=== PATIENT | male | born 2000 | race Caucasian/White ===

== ENCOUNTER 2021-05-22 19:28 | Inpatient (IN) ==
--- NOTE | 2021-05-22 19:47 | Emergency Department Note ---
Impression & Plan Acute hypoxemic respiratory failure, Acute dehydration, Pneumonia due to 2019 novel coronavirus, Hypokalemia ED Provider Note NAME: SATISH STRATTON AGE: 21 SEX: M : 2000 ARRIVES VIA: Walk-In INFORMANT: Patient, ED PROVIDER(S): Vasile Gibbons MD Chief Complaint: Diarrhea, cough, Covid positive HPI: Patient does present with the above symptoms which is been ongoing since last week. They have gotten slightly progressively worse. The patient's mother and father both have Covid symptoms. Patient states that his cough has been nonproductive. Patient is non-smoker. Patient does complain of some abdominal soreness as the patient has had some nausea and diarrheal symptoms. Patient denies recent falls or trauma. The patient has had slightly decreased appetite. No recent travel. The patient's mother and father are known sick contacts. The patient is not vaccinated against Covid. The patient does have a known history of autism. Patient denies any prior history of heart or lung disease. The patient denies any lower extremity edema. The patient states he has had no blood with the diarrhea. ROS: See HPI for pertinent positives and negatives. A total of 10 systems were reviewed and otherwise negative. Past medical history: See below Surgical history: See below Social history: See below Physical Exam: GENERAL: Wearing a mask, nontoxic. EYE EXAM: Normal conjunctiva. PERRL, no anisocoria and EOM's grossly intact w/o pain. NECK: Supple, no nuchal rigidity, no adenopathy, non-tender. No signs of meningismus. LUNGS: Crackles present. Normal chest wall mechanics. HEART: Tachycardic and regular, no MRG. ABDOMEN: Abdomen soft, non-tender, normo-active bowel sounds, no masses, no rebound or guarding. BACK: No CVA TTP. SKIN: No rashes and no bruising. UPPER EXTREMITIES: Upper extremities are grossly normal. LOWER EXTREMITIES: Grossly normal, no edema. Negative Homans' sign bilaterally. NEURO EXAM: A&O x3, cranial nerves II-XII grossly intact, normal speech, moves all 4 extremities on command w/o issue. Differential diagnoses: Reactive airway disease, pneumonia, pneumothorax, COPD, CHF, infections, cardiac ischemia, pulmonary embolism, musculoskeletal, gastrointestinal, as well as other pathologies. Course: Patient was seen and evaluated the bedside. Full history physical exam was performed. EKG interpreted by me Sinus tachycardia, rate of 125, normal intervals, right axis deviation, T wave inversion in lead III Imaging Studies: See below Cardiac monitoring: An order was placed for continuous cardiac monitoring. The monitor shows a rate of 112 with sinus tachycardia rhythm. MDM: Patient was seen due to concern for diarrheal illness, positive Covid with nausea and cough. Patient did have blood work completed along with a chest x- ray. After the patient was initially evaluated the patient was noted to be hypoxic from 86 to 88% on room air was placed on 2 L nasal cannula by nursing. Patient's EKG shows sinus tachycardia. Chest x-ray does show concern for viral multifocal pneumonia. The patient was ordered dexamethasone along with blood work. Patient was ordered medications for symptomatic improvement. Patient does have leukopenia with thrombocytopenia likely from the patient's viral type illness. Patient's H&H is normal. Kidney function unremarkable with very mild hypokalemia. Troponin not detectable. Given the patient's hypoxemia I did speak with the on-call hospitalist and the patient was admitted to the medicine service by Dr. Christensen. ABG was ordered. on reassessment the patient states he did feel improved with regard to his symptoms. Critical Care: I have personally spent 48 minutes of critical care time in direct management of this patient. This includes bedside care, interpretation of diagnostic studies, and testing, discussion with consultants, patient, and family members, and other require inpatient management activities. This 48 minutes is in excess of all separately billable procedures. Past Med/Surg History Medical History (Updated 05/22/21 @ 22:35 by Vasile Gibbons MD) ADHD Autism Generalized anxiety disorder Surgical History S/P tympanostomy tube placement Family History Mother Diabetes Dyslipidemia Hypertension Hypothyroidism Anxiety Hiatal hernia Father Hypertension Vitamin D deficiency Irritable bowel syndrome Grandmother (Maternal) Irritable bowel syndrome Sister Hiatal hernia Grandfather (Paternal) No problems noted. Grandfather (Maternal) Hiatal hernia Denies family history of Ovarian cancer Prostate cancer Crohn's disease Myocardial infarction Breast cancer Colorectal cancer Ulcerative colitis Colonic polyp Social History Smoking Status: Never smoker Second Hand Exposure: Yes; Hx Alcohol Use: Yes Alcohol Intake Frequency: Monthly or Less Alcohol Intake Frequency Comment: social Hx Substance Use: No Preferred Language: Kazakh Visual Impairment: Limited Hearing Ability: Normal Beliefs That Will Affect Care: None marital status: Single Current Living Situation: Family Current Living Situation Comment: Lives with Mother and Father current occupational status: unemployed Feels Safe at Home: Yes Childhood Exposure to Second-Hand Smoke: No caffeine: Yes (Soda, iced tea daily) during the past year weight has: remained stable Dental Care, Regularly: Yes Physical Activity Frequency: 1-2 Times per Week Physical Activity Frequency Comment: [employer] Seatbelt Use: always Sunscreen Use: Yes Assistive Devices: Glasses Allergies Allergies Allergy/AdvReac Type Severity Reaction Status Date / Time cefuroxime AdvReac Intermediate N/V Verified 05/22/21 19:56 amoxicillin [From Augmentin] AdvReac Mild Abdominal Verified 05/22/21 19:56 distress clavulanic acid AdvReac Mild Abdominal Verified 05/22/21 19:56 [From Augmentin] distress Home Meds Home Medications Medication Instructions Recorded Confirmed trazodone 100 mg tablet See Rx Instructions .ROUTE .COMPLEX 06/17/19 05/22/21 buspirone 10 mg tablet 10 mg PO BID 06/27/19 05/22/21 guanfacine 2 mg tablet 2 mg PO BID tab 06/27/19 05/22/21 methylphenidate HCl 36 mg 36 mg PO DAILY tab 06/27/19 05/22/21 tablet,extended release 24 hr fluvoxamine 100 mg tablet 100 mg PO HS 05/22/21 05/22/21 Previous Rx's Medication Instructions Recorded famotidine 20 mg tablet 20 mg PO BID #180 tab 11/12/20 Results & Data (ED) Vital Signs Vital Signs - 24 hr 05/22/21 19:40 05/22/21 20:15 05/22/21 20:30 Temperature 37.7 C H Temperature Source Temporal Artery Scan Pulse Rate 141 H 128 H 126 H Pulse Rate from SpO2 Sensor 129 H 126 H Respiratory Rate 20 23 14 Respiratory Effort / Characteristics Non-Labored Spontaneous Respiratory Depth Normal Respiratory Pattern Regular Blood Pressure 108/71 127/90 142/95 H Blood Pressure Mean 83 102 110 Blood Pressure Position Sitting Pulse Oximetry 93 92 86 L Oxygen Delivery Method Room Air Room Air Oxygen Flow Rate Sepsis Recent Fever Within 48 Hours Yes Sepsis New/Unexplained Change in Mental Status N/A Sepsis Action Taken by Nursing No Action Required 05/22/21 20:47 05/22/21 21:00 05/22/21 21:30 Temperature Temperature Source Pulse Rate 114 H 119 H Pulse Rate from SpO2 Sensor 114 H 119 H Respiratory Rate 20 17 Respiratory Effort / Characteristics Respiratory Depth Respiratory Pattern Blood Pressure 128/82 130/81 Blood Pressure Mean 97 97 Blood Pressure Position Pulse Oximetry 94 95 94 Oxygen Delivery Method Nasal Cannula Nasal Cannula Nasal Cannula Oxygen Flow Rate 2 2 2 Sepsis Recent Fever Within 48 Hours Sepsis New/Unexplained Change in Mental Status Sepsis Action Taken by Nursing 05/22/21 22:00 Temperature Temperature Source Pulse Rate 112 H Pulse Rate from SpO2 Sensor 112 H Respiratory Rate 16 Respiratory Effort / Characteristics Respiratory Depth Respiratory Pattern Blood Pressure 133/77 Blood Pressure Mean 95 Blood Pressure Position Pulse Oximetry 93 Oxygen Delivery Method Nasal Cannula Oxygen Flow Rate 2 Sepsis Recent Fever Within 48 Hours Sepsis New/Unexplained Change in Mental Status Sepsis Action Taken by [facility] Medications Current Medication List: was personally reviewed by me Laboratory Data Attestation: I reviewed the patient's lab results. Result diagrams: 05/22/21 20:18 05/22/21 20:18 Lab Results 05/22/21 05/22/21 05/22/21 Range/Units 20:18 20:18 22:01 WBC 3.51 L (4.8-10.8) K/uL RBC 5.34 (4.7-6.1) M/uL Hgb 15.9 (14.0-18.0) g/dL Hct 45.4 (42-52) % MCV 85.0 (80-100) fL MCH 29.8 (25-34) pg MCHC 35.0 (32-36) g/dL RDW Std Deviation 39.4 (36.4-46.3) fL RDW Coeff of Jose F 12.6 (11.5-14.5) % Plt Count 89 L (130-400) K/uL MPV 11.1 H (7.4-10.4) fL Immature Gran % (Auto) 0.0 % Neut % (Auto) 69.0 % Lymph % (Auto) 27.6 % [place] % (Auto) 3.4 % Eos % (Auto) 0.0 % Baso % (Auto) 0.0 % Neut # (Auto) 2.42 (1.4-6.5) K/uL Lymph # (Auto) 0.97 L (1.2-3.4) K/uL [place] # (Auto) 0.12 (0.11-0.59) K/uL Eos # (Auto) 0.00 (0-0.5) K/uL Baso # (Auto) 0.00 (0-0.2) K/uL Immature Gran # (Auto) 0.00 (0.00-0.02) K/uL Platelet Estimate Decreased L (Normal) Polychromasia 1+ Sodium 136 (136-145) mmol/L Potassium 3.2 L (3.5-5.1) mmol/L Chloride 107 (98-107) mmol/L Carbon Dioxide 21 (21-32) mmol/L Anion Gap 8.0 (3-11) BUN 14 (7-18) mg/dl Creatinine 1.23 (0.6-1.4) mg/dl Est Cr Clr Drug Dosing 118.2 ml/min Est GFR ( Amer) 95.3 ml/min Est GFR (Non-Af Amer) 82.2 ml/min BUN/Creatinine Ratio 11.5 (10-20) Glucose 100 H (70-99) mg/dl Calcium 8.7 (8.5-10.1) mg/dl Total Bilirubin 0.6 (0.2-1) mg/dl AST 62 H (15-37) U/L ALT 34 (12-78) U/L Alkaline Phosphatase 78 (45-117) U/L Troponin I < 0.015 (0-0.045) ng/ml Total Protein 7.4 (6.4-8.2) gm/dl Albumin 3.5 (3.4-5.0) gm/dl Globulin 3.9 (2.5-4.0) gm/dl Albumin/Globulin Ratio 0.9 (0.9-2) TSH 0.793 (0.300-4.500) uIu/ml COVID-19 Eval Order Covid19 at [facility] Administered Medications Discontinued Medications Acetaminophen (Acetaminophen 500 Mg Tab) 1,000 mg PO NOW STA Stop: 05/22/21 20:00 Last Admin: 05/22/21 20:20 Dose: 1,000 mg Documented by: [id number] Dexamethasone Sodium Phosphate (DexamethasonePf 10 Mg/Ml Vial) 6 mg IV NOW ONE Stop: 05/22/21 21:36 Last Admin: 05/22/21 21:58 Dose: 6 mg Documented by: [id number] Sodium Chloride (Nss 1000ml) 2,000 mls @ 999 mls/hr IV .Q2H1M RENZO Stop: 05/22/21 22:00 Last Infusion: 05/22/21 22:22 Dose: 0 mls/hr Documented by: [id number] Admin: 05/22/21 20:20 Dose: 999 mls/hr Documented by: [id number] Ketorolac Tromethamine (Ketorolac 30 Mg/Ml Vial) 30 mg IV NOW STA Stop: 05/22/21 20:00 Last Admin: 05/22/21 20:20 Dose: 30 mg Documented by: [id number] Ondansetron HCl (Ondansetron Inj 2 Mg/Ml 2 Ml Vial) 4 mg IV NOW STA Stop: 05/22/21 20:00 Last Admin: 05/22/21 20:20 Dose: 4 mg Documented by: [id number] Imaging Data Radiologist's Impression: Chest X-Ray 05/22/21 19:59 XR chest 1V portable HISTORY: weakness COMPARISON: None. FINDINGS: The heart is normal in size. No pleural effusions. No pneumothorax. There are patchy bilateral mid to lower lung zone airspace opacities, left greater than right. IMPRESSION: Multifocal airspace opacities within the bilateral mid to lower lung zones consistent with a viral pneumonia. ACT 112: Negative or not required by law. Electronically signed by: Jerald Caldwell M.D. 05/22/2021 8:30 PM Discharge Plan Visit Data Chief Complaint: Dehydration Stated Complaint: COVID +, DR REF, DEHYDRATION ED Provider: Vasile Gibbons Discharge Problem: Acute hypoxemic respiratory failure, Acute dehydration, Pneumonia due to 2019 novel coronavirus, Hypokalemia Forms Stand Alone Forms: My [facility] [employer] Prescriptions Prescriptions: No Action famotidine 20 mg tablet 20 mg PO BID Qty: 180 RF: 3 trazodone 100 mg tablet See Rx Instructions .ROUTE .COMPLEX RF: 0 guanfacine 2 mg tablet 2 mg PO BID RF: 0 methylphenidate HCl 36 mg tablet extended release 24hr 36 mg PO DAILY RF: 0 buspirone 10 mg tablet 10 mg PO BID RF: 0 fluvoxamine 100 mg tablet 100 mg PO HS RF: 0 Referrals Referrals: Lucille Barbour DO [Primary Care Provider] -
[2021-05-22] MEDS ORDERED: ONDANSETRON INJ 2 MG/ML 2 ML VIAL IV STA (19:59)
[2021-05-22] MEDS ORDERED: ACETAMINOPHEN 500 MG TAB PO STA (19:59)
[2021-05-22] MEDS ORDERED: KETOROLAC 30 MG/ML VIAL IV STA (19:59)
[2021-05-22] MEDS ORDERED: SODIUM CHLORIDE 0.9% 1000ML 2,000 ML IV SCH (20:00)
--- NOTE | 2021-05-22 20:31 | XRay Report ---
XR chest 1V portable HISTORY: weakness COMPARISON: None. FINDINGS: The heart is normal in size. No pleural effusions. No pneumothorax. There are patchy bilate ral mid to lower lung zone airspace opacities, left greater than right. IMPRESSION: Multifocal airspace opacities within the bilateral mid to lower lung zones consistent with a viral pn eumonia. ACT 112: Negative or not required by law. Electronically signed by: Jerald Caldwell M.D. 05/22/2021 8:30 PM
[2021-05-22 21:04] LABS: Alanine Aminotransferase 34 U/L (12-78); Albumin Level 3.5 gm/dl (3.4-5.0); Aspartate Aminotransferase 62 U/L (15-37); BUN Creatinine Ratio 11.5 (10-20); Blood Urea Nitrogen 14 mg/dl (7-18); Calcium 8.7 mg/dl (8.5-10.1); Carbon Dioxide 21 mmol/L (21-32); Chloride 107 mmol/L (98-107); Creatinine Clr Calc Pharmacy 118.2 ml/min; Est GFR (African American) 95.3 ml/min; Est GFR (Non-African American) 82.2 ml/min; Glucose 100 mg/dl (70-99); Potassium 3.2 mmol/L (3.5-5.1); Sodium 136 mmol/L (136-145)
[2021-05-22 21:15] LABS: Albumin Globulin Ratio 0.9 (0.9-2); Alkaline Phosphatase 78 U/L (45-117); Bilirubin,Total 0.6 mg/dl (0.2-1); Globulin 3.9 gm/dl (2.5-4.0); Hematocrit (blood only) 45.4 % (42-52); Hemoglobin 15.9 g/dL (14.0-18.0); Mean Corpuscular Hemoglobin 29.8 pg (25-34); Mean Platelet Volume 11.1 fL (7.4-10.4); Platelet Count 89 K/uL (130-400); RDW Coefficient of Variation 12.6 % (11.5-14.5); RDW Standard Deviation 39.4 fL (36.4-46.3); Red Blood Count 5.34 M/uL (4.7-6.1); Thyroid Stimulating Hormone 0.793 uIu/ml (0.300-4.500); Total Protein 7.4 gm/dl (6.4-8.2); Troponin I < 0.015 ng/ml (0-0.045); White Blood Count 3.51 K/uL (4.8-10.8)
[2021-05-22 21:16] LABS: Lymphocytes # (auto) 0.97 K/uL (1.2-3.4); Lymphocytes % (auto) 27.6 %; Monocytes # (auto) 0.12 K/uL (0.11-0.59); Monocytes % (auto) 3.4 %; Neutrophils # (auto) 2.42 K/uL (1.4-6.5); Platelet Estimate Decreased (Normal); Polychromasia 1+
[2021-05-22] MEDS ORDERED: dexAMETHasone**PF** 10 MG/ML VIAL IV ONE (21:35)
[2021-05-22] MEDS ORDERED: POTASSIUM CHLORIDE CRTAB 20 MEQ TABCR PO STA (22:35)
--- NOTE | 2021-05-22 22:38 | History & Physical Report ---
Date of Service May 22, 2021 Assessment & Plan (1) Pneumonia due to 2019 novel coronavirus: (2) ADHD: (3) Generalized anxiety disorder: (4) Autism: (5) GERD (gastroesophageal reflux disease): (6) Acute hypoxemic respiratory failure: Plan: 1. COVID19 Pneumonia - remdesivir x1 in ED, continue daily - decadron daily - d-dimer elevated - covid therapeutic anticoag with lovenox bid - o2 goal >94, - normal abg - tylenol prn for fevers - leukopenic, thrombocytopenic, mild transaminitis, trend in AM ADHD - continue guanfacine, hold methylphenidate Anxiety/insomnia - cont trazodone, fluvoaxamine, buspar Gerd - cont famotidine DVT ppx: therapeutic lovenox bid FEN/GI: regular diet, famotidine Code status FULL CODE Dispo: Covid wing History of Present Illness Primary Care Provider: Lucille Barbour, DO 21 yo M with hx ADHD, autism, gerd brought to ER for symptoms of nausea, stomach pain. States his symptoms started 1 week ago. His father tested positive for COVID from a positive contact at work 10 days ago. He denies any symptoms of chest pain, shortness of breath. He attests to having night sweats, chills, no fevers. Some nausea and abdominal pain,no diarrhea, no vomiting. has not been vaccinated for COVID. No known immunodeficiencies. Allergies Allergy/AdvReac Type Severity Reaction Status Date / Time cefuroxime AdvReac Intermediate N/V Verified 05/22/21 19:56 amoxicillin [From Augmentin] AdvReac Mild Abdominal Verified 05/22/21 19:56 distress clavulanic acid AdvReac Mild Abdominal Verified 05/22/21 19:56 [From Augmentin] distress Home Medications Medication Instructions Recorded Confirmed Type trazodone 100 mg tablet See Rx Instructions .ROUTE .COMPLEX 06/17/19 05/22/21 History buspirone 10 mg tablet 10 mg PO BID 06/27/19 05/22/21 History guanfacine 2 mg tablet 2 mg PO BID tab 06/27/19 05/22/21 History methylphenidate HCl 36 mg 36 mg PO DAILY tab 06/27/19 05/22/21 History tablet,extended release 24 hr famotidine 20 mg tablet 20 mg PO BID #180 tab 11/12/20 05/22/21 Rx fluvoxamine 100 mg tablet 100 mg PO HS 05/22/21 05/22/21 History Past Med/Surg History Medical History (Updated 05/22/21 @ 22:35 by Vasile Gibbons MD) ADHD Autism Generalized anxiety disorder Surgical History S/P tympanostomy tube placement Family History Mother Diabetes Dyslipidemia Hypertension Hypothyroidism Anxiety Hiatal hernia Father Hypertension Vitamin D deficiency Irritable bowel syndrome Grandmother (Maternal) Irritable bowel syndrome Sister Hiatal hernia Grandfather (Paternal) No problems noted. Grandfather (Maternal) Hiatal hernia Denies family history of Ovarian cancer Prostate cancer Crohn's disease Myocardial infarction Breast cancer Colorectal cancer Ulcerative colitis Colonic polyp Social History Smoking Status: Never smoker Second Hand Exposure: Yes; Hx Alcohol Use: Yes Alcohol Intake Frequency: Monthly or Less Alcohol Intake Frequency Comment: social Hx Substance Use: No Preferred Language: Filipino Communication Ability: Effective Visual Impairment: Limited Hearing Ability: Normal Advertising Operations Coordinator Required: No Beliefs That Will Affect Care: None marital status: Single Current Living Situation: Parent Current Living Situation Comment: Lives with Mother and Father current occupational status: unemployed Other Information That Helps Us Care for You: No Feels Safe at Home: Yes Safety Concerns: Feels Safe At This Time Childhood Exposure to Second-Hand Smoke: No caffeine: Yes (Soda, iced tea daily) during the past year weight has: remained stable Dental Care, Regularly: Yes Physical Activity Frequency: 1-2 Times per Week Physical Activity Frequency Comment: [employer] Seatbelt Use: always Sunscreen Use: Yes Assistive Devices: Glasses Review of Systems Constitutional: + chills and + sweats; no fever and no fatigue Eyes: no blind spots and no discharge Ear, Nose, Mouth, Throat: no hearing loss and no nasal congestion Respiratory: no cough and no dyspnea Cardiovascular: no chest pain, no dyspnea on exertion and no edema Gastrointestinal: + abdominal pain and + nausea; no vomiting, no constipation, no diarrhea/loose stools and no blood in stools Musculoskeletal: no joint pain and no myalgia Neurologic: no tingling, no numbness and no headache(s) Endocrine: no fatigue Physical Exam Physical Exam: Constitutional: obese, in no apparent distress, sitting comfortably in bed. Eyes: EOMI, pupils equal and reactive bilaterally, no scleral icterus Cardiac: RRR, no murmurs, gallops or rubs. Normal S1, S2 Pulm:Mild rhonchi and crackles at base, poor inspiratory effort Abd: soft, nontender, nondistended, normal bowel sounds, no rebound or guarding Extremities: 2+ peripheral pulses, no edema Neuro: no focal deficits, moving all 4 limbs, A&Ox3 Results & Data Results & Data ([facility]) Vital Signs (Past 12 Hours) Vital Signs Temp Pulse Resp BP Pulse Ox 05/22/21 22:00 112 H 16 133/77 93 05/22/21 21:30 119 H 17 130/81 94 05/22/21 21:00 114 H 20 128/82 95 05/22/21 20:47 94 05/22/21 20:30 126 H 14 142/95 H 86 L 05/22/21 20:15 128 H 23 127/90 92 05/22/21 19:40 37.7 C H 141 H 20 108/71 93 Laboratory Results Laboratory Results WBC 3.51 K/uL (4.8-10.8) L 05/22/21 20:18 RBC 5.34 M/uL (4.7-6.1) 05/22/21 20:18 Hgb 15.9 g/dL (14.0-18.0) 05/22/21 20:18 Hct 45.4 % (42-52) 05/22/21 20:18 MCV 85.0 fL (80-100) 05/22/21 20:18 MCH 29.8 pg (25-34) 05/22/21 20:18 MCHC 35.0 g/dL (32-36) 05/22/21 20:18 RDW Std Deviation 39.4 fL (36.4-46.3) 05/22/21 20:18 RDW Coeff of Jose F 12.6 % (11.5-14.5) 05/22/21 20:18 Plt Count 89 K/uL (130-400) L 05/22/21 20:18 MPV 11.1 fL (7.4-10.4) H 05/22/21 20:18 Immature Gran % (Auto) 0.0 % 05/22/21 20:18 Neut % (Auto) 69.0 % 05/22/21 20:18 Lymph % (Auto) 27.6 % 05/22/21 20:18 [place] % (Auto) 3.4 % 05/22/21 20:18 Eos % (Auto) 0.0 % 05/22/21 20:18 Baso % (Auto) 0.0 % 05/22/21 20:18 Neut # (Auto) 2.42 K/uL (1.4-6.5) 05/22/21 20:18 Lymph # (Auto) 0.97 K/uL (1.2-3.4) L 05/22/21 20:18 [place] # (Auto) 0.12 K/uL (0.11-0.59) 05/22/21 20:18 Eos # (Auto) 0.00 K/uL (0-0.5) 05/22/21 20:18 Baso # (Auto) 0.00 K/uL (0-0.2) 05/22/21 20:18 Immature Gran # (Auto) 0.00 K/uL (0.00-0.02) 05/22/21 20:18 Platelet Estimate Decreased (Normal) L 05/22/21 20:18 Polychromasia 1+ 05/22/21 20:18 D-Dimer 980 ug/L FEU (0-500) H* 05/22/21 23:41 ABG pH 7.43 (7.35-7.45) 05/22/21 22:37 ABG pCO2 30 mmHg (35-46) L 05/22/21 22:37 ABG pO2 81 mmHg (80-95) 05/22/21 22:37 ABG HCO3 20 mmol/L (19-24) 05/22/21 22:37 ABG O2 Saturation 96.6 % (90-95) H 05/22/21 22:37 ABG Base Excess -3.5 mEq/L (-9-1.8) 05/22/21 22:37 Jason Test POS (Pos) 05/22/21 22:37 Barometric Pressure 731.5 mm/Hg 05/22/21 22:37 Oxygen Given 2 L 05/22/21 22:37 Sodium 136 mmol/L (136-145) 05/22/21 20:18 Potassium 3.2 mmol/L (3.5-5.1) L 05/22/21 20:18 Chloride 107 mmol/L (98-107) 05/22/21 20:18 Carbon Dioxide 21 mmol/L (21-32) 05/22/21 20:18 Anion Gap 8.0 (3-11) 05/22/21 20:18 BUN 14 mg/dl (7-18) 05/22/21 20:18 Creatinine 1.23 mg/dl (0.6-1.4) 05/22/21 20:18 Est Cr Clr Drug Dosing 118.2 ml/min 05/22/21 20:18 Est GFR ( Amer) 95.3 ml/min 05/22/21 20:18 Est GFR (Non-Af Amer) 82.2 ml/min 05/22/21 20:18 BUN/Creatinine Ratio 11.5 (10-20) 05/22/21 20:18 Glucose 100 mg/dl (70-99) H 05/22/21 20:18 Calcium 8.7 mg/dl (8.5-10.1) 05/22/21 20:18 Total Bilirubin 0.6 mg/dl (0.2-1) 05/22/21 20:18 AST 62 U/L (15-37) H 05/22/21 20:18 ALT 34 U/L (12-78) 05/22/21 20:18 Alkaline Phosphatase 78 U/L (45-117) 05/22/21 20:18 Troponin I < 0.015 ng/ml (0-0.045) 05/22/21 20:18 Total Protein 7.4 gm/dl (6.4-8.2) 05/22/21 20:18 Albumin 3.5 gm/dl (3.4-5.0) 05/22/21 20:18 Globulin 3.9 gm/dl (2.5-4.0) 05/22/21 20:18 Albumin/Globulin Ratio 0.9 (0.9-2) 05/22/21 20:18 TSH 0.793 uIu/ml (0.300-4.500) 05/22/21 20:18 COVID-19 Eval Order Covid19 at [facility] 05/22/21 22:01 SARS-CoV-2 (PCR) POSITIVE (Negative) A* 05/22/21 22:01 Impressions Chest X-Ray 05/22/21 19:59 XR chest 1V portable HISTORY: weakness COMPARISON: None. FINDINGS: The heart is normal in size. No pleural effusions. No pneumothorax. There are patchy bilateral mid to lower lung zone airspace opacities, left greater than right. IMPRESSION: Multifocal airspace opacities within the bilateral mid to lower lung zones consistent with a viral pneumonia. ACT 112: Negative or not required by law. Electronically signed by: Jerald Caldwell M.D. 05/22/2021 8:30 PM Supervising Physician Co-Signing Physician Notes Attending addendum: I have physically seen this patient, have supervised the medical residents a ctivities, and agree with the H&P unless as otherwise noted. Assessment and Plan: COVID-19 pneumonia with hypoxia- Unvaccinated Dexamethasone 6 mg IV daily Remdesivir IV per protocol Guaifenesin extended release 12 1 mg p.o. twice daily Vitamin D 5000 international units p.o. daily Zinc sulfate turn 20 mg p.o. daily Albuterol HFA 2 puffs 4 times daily DuoNebs every 2 hours as needed Acetaminophen 650 mg p.o. every 6 hours as needed mild pain or fever Follow serial CBC with differential and chemistry profile Thrombocytopenia- Platelets 89 upon admission, follow serially Hypokalemia- Replace with oral supplementation recheck in the a.m. Anxiety/insomnia/ADHD- Continue guanfacine, trazodone, fluvoxamine and BuSpar Hold methylphenidate Remaining orders and notations as noted Resident Activity Tracking Resident Involvement: Resident Care Provided Care Provided: Adult Hospital Medicine
[2021-05-22] MEDS: POTASSIUM CHLORIDE / WTR 10 MEQ/100 ML PLCT IV SCH (22:59)
[2021-05-22 23:20] LABS: Base Excess ABG -3.5 mEq/L (-9-1.8); HCO3 ABG 20 mmol/L (19-24); Oxygen Saturation ABG 96.6 % (90-95); PCO2 ABG 30 mmHg (35-46); PO2 ABG 81 mmHg (80-95); pH ABG 7.43 (7.35-7.45)
[2021-05-22 23:34] LABS: Allen Test POS (Pos)
[2021-05-23 00:03] LABS: D Dimer 980 ug/L FEU (0-500)
[2021-05-23] MEDS ORDERED: POLYETHYLENE (MIRALAX) 17 GM PACK PO PRN (00:07)
[2021-05-23] MEDS ORDERED: MoRPHine SULFATE 2 MG/ML CARP IV PRN (00:07)
[2021-05-23] MEDS ORDERED: ACETAMINOPHEN 325 MG TAB PO PRN (00:07)
[2021-05-23] MEDS ORDERED: NITROGLYCERIN SL 0.4 MG/TAB TAB SL PRN (00:07)
[2021-05-23] MEDS ORDERED: ONDANSETRON INJ 2 MG/ML 2 ML VIAL IV PRN (00:07)
[2021-05-23] MEDS ORDERED: SODIUM CHLORIDE 0.9% 1000ML 1,000 ML IV SCH (00:07)
[2021-05-23] MEDS ORDERED: ALUMINUM/MAGNESIUM SUSP 30 ML UDC PO PRN (00:07)
[2021-05-23] MEDS: ALBUT/IPRATROP 3MG/0.5MG NEB 3 ML VIAL NEB SCH ×4 (00:42→11:36)
[2021-05-23] MEDS: POTASSIUM CHLORIDE / WTR 10 MEQ/100 ML PLCT IV SCH (00:47)
[2021-05-23] MEDS: FAMOTIDINE 20 MG TAB PO SCH ×3 (01:07→21:09)
[2021-05-23] MEDS: busPIRone 5 MG TAB PO SCH ×3 (01:07→21:09)
[2021-05-23] MEDS: fluvoxaMINE MALEATE 50 MG TAB PO SCH ×2 (01:07→21:09)
[2021-05-23] MEDS: guanFACINE HCL 1 MG TAB PO SCH ×3 (01:08→21:09)
[2021-05-23] MEDS: ENOXAPARIN INJ 40 MG/0.4 ML SYR SQ SCH ×3 (01:55→21:08)
[2021-05-23] MEDS ORDERED: REMDESIVIR 200 mg: Day 1 IV ONE (02:00)
[2021-05-23] MEDS: SODIUM CHLORIDE 0.9% 10ML FLUSH IV SCH ×2 (03:55→22:04)
[2021-05-23 07:39] LABS: Hematocrit (blood only) 43.4 % (42-52); Hemoglobin 14.8 g/dL (14.0-18.0); Mean Corpuscular Hemoglobin 29.4 pg (25-34); Mean Corpuscular Hgb Conc 34.1 g/dL (32-36); Mean Corpuscular Volume 86.1 fL (80-100); RDW Coefficient of Variation 12.9 % (11.5-14.5); RDW Standard Deviation 41.2 fL (36.4-46.3); Red Blood Count 5.04 M/uL (4.7-6.1); White Blood Count 2.36 K/uL (4.8-10.8)
[2021-05-23 07:42] LABS: Mean Platelet Volume 11.2 fL (7.4-10.4); Platelet Count 83 K/uL (130-400)
[2021-05-23 08:04] LABS: Albumin Level 2.8 gm/dl (3.4-5.0); BUN Creatinine Ratio 17.2 (10-20); Bilirubin Direct 0.1 mg/dl (0-0.2); Calcium 7.9 mg/dl (8.5-10.1); Creatinine Clr Calc Pharmacy 163.2 ml/min; Est GFR (African American) 139.7 ml/min; Est GFR (Non-African American) 120.5 ml/min; Potassium 4.1 mmol/L (3.5-5.1)
[2021-05-23 08:08] LABS: Echinocytes 2+; Lymphocytes # (auto) 0.99 K/uL (1.2-3.4); Lymphocytes % (auto) 41.9 %; Monocytes # (auto) 0.06 K/uL (0.11-0.59); Monocytes % (auto) 2.5 %; Neutrophils # (auto) 1.31 K/uL (1.4-6.5); Neutrophils % (auto) 55.6 %
[2021-05-23 08:13] LABS: Albumin Globulin Ratio 0.8 (0.9-2); Bilirubin,Total 0.5 mg/dl (0.2-1); Globulin 3.7 gm/dl (2.5-4.0); Total Protein 6.5 gm/dl (6.4-8.2)
[2021-05-23] MEDS: dexAMETHasone 6 MG in SYRINGE 0 ML IV SCH (08:27)
--- NOTE | 2021-05-23 09:51 | Hospitalist Progress Note ---
Date of Service May 23, 2021 Assessment & Plan (1) Pneumonia due to 2019 novel coronavirus: Plan: stable on 2L, no distress stop fluids dexamethasone 6mg IV daily Remdesivir Lovenox for DVT prophylaxis (2) Acute hypoxemic respiratory failure: Plan: due to COVID pneumonia, stable on 2L, wean as tolerated anticipate discharge in 1-2 days (3) ADHD: Plan: continue home medications (4) Generalized anxiety disorder: Plan: mood is stable (5) Autism: (6) GERD (gastroesophageal reflux disease): Plan: PPI Admission and Anticipated Discharge Date Admission Date: May 22, 2021 Subjective patient doing well, breathing comfortably on 2L, sleeping he is eating well, no nausea, no diarrhea no fever/chills, minimal cough told him he is likely to go home in 1-2 days Review of Systems Review of Systems: All systems reviewed & are unremarkable except as noted in Subjective Respiratory: + cough and + dyspnea on exertion; no dyspnea Cardiovascular: no chest pain and no edema Gastrointestinal: no abdominal pain, no nausea, no vomiting, no constipation and no diarrhea/loose stools Physical Exam Constitutional: well developed, well nourished and comfortable; no acute distress Neck: trachea midline, no thyromegaly Respiratory: normal respiratory effort, lungs clear to auscultation Cardiovascular: RRR, no murmur, no edema Gastrointestinal (Abdomen): normal bowel sounds, soft, nontender, no hepatosplenomegaly Musculoskeletal: no cyanosis or clubbing, extremities motor strength 5/5 Skin: no rashes, warm and dry Neurologic: CN's II-XI intact bilaterally, moves all extremities and awake; no focal motor deficits Psychiatric: Estimated Intelligence: + below average estimated intelligence Results & Data Results & Data ([facility]) Vital Signs (Past 12 Hours) Vital Signs Temp Pulse Pulse Pulse Resp BP BP 05/23/21 08:00 62 05/23/21 07:13 36.9 C 89 20 128/77 05/23/21 03:12 36.7 C 75 18 132/74 05/23/21 03:03 81 18 05/22/21 23:50 37.5 C 103 H 22 131/90 05/22/21 23:33 101 H 19 119/85 05/22/21 23:00 104 H 19 149/96 H 05/22/21 22:30 108 H 18 124/76 05/22/21 22:00 112 H 16 133/77 Pulse Ox 05/23/21 08:00 05/23/21 07:13 95 05/23/21 03:12 94 05/23/21 03:03 97 05/22/21 23:50 94 05/22/21 23:33 93 05/22/21 23:00 94 05/22/21 22:30 94 05/22/21 22:00 93 Laboratory Results Laboratory Results - last 24 hr 05/22/21 05/22/21 05/22/21 20:18 20:18 22:01 WBC 3.51 L RBC 5.34 Hgb 15.9 Hct 45.4 MCV 85.0 MCH 29.8 MCHC 35.0 RDW Std Deviation 39.4 RDW Coeff of Jose F 12.6 Plt Count 89 L MPV 11.1 H Immature Gran % (Auto) 0.0 Neut % (Auto) 69.0 Lymph % (Auto) 27.6 Clinch % (Auto) 3.4 Eos % (Auto) 0.0 Baso % (Auto) 0.0 Neut # (Auto) 2.42 Lymph # (Auto) 0.97 L Clinch # (Auto) 0.12 Eos # (Auto) 0.00 Baso # (Auto) 0.00 Immature Gran # (Auto) 0.00 Platelet Estimate Decreased L Polychromasia 1+ Echinocytes D-Dimer ABG pH ABG pCO2 ABG pO2 ABG HCO3 ABG O2 Saturation ABG Base Excess Jason Test Barometric Pressure Oxygen Given Sodium 136 Potassium 3.2 L Chloride 107 Carbon Dioxide 21 Anion Gap 8.0 BUN 14 Creatinine 1.23 Est Cr Clr Drug Dosing 118.2 Est GFR ( Amer) 95.3 Est GFR (Non-Af Amer) 82.2 BUN/Creatinine Ratio 11.5 Glucose 100 H Calcium 8.7 Total Bilirubin 0.6 Direct Bilirubin AST 62 H ALT 34 Alkaline Phosphatase 78 Troponin I < 0.015 Total Protein 7.4 Albumin 3.5 Globulin 3.9 Albumin/Globulin Ratio 0.9 TSH 0.793 COVID-19 Eval Order Covid19 at [facility] SARS-CoV-2 (PCR) 05/22/21 05/22/21 05/22/21 22:01 22:37 23:41 WBC RBC Hgb Hct MCV MCH MCHC RDW Std Deviation RDW Coeff of Jose F Plt Count MPV Immature Gran % (Auto) Neut % (Auto) Lymph % (Auto) Clinch % (Auto) Eos % (Auto) Baso % (Auto) Neut # (Auto) Lymph # (Auto) Clinch # (Auto) Eos # (Auto) Baso # (Auto) Immature Gran # (Auto) Platelet Estimate Polychromasia Echinocytes D-Dimer 980 H* ABG pH 7.43 ABG pCO2 30 L ABG pO2 81 ABG HCO3 20 ABG O2 Saturation 96.6 H ABG Base Excess -3.5 Jason Test POS Barometric Pressure 731.5 Oxygen Given 2 L Sodium Potassium Chloride Carbon Dioxide Anion Gap BUN Creatinine Est Cr Clr Drug Dosing Est GFR ( Amer) Est GFR (Non-Af Amer) BUN/Creatinine Ratio Glucose Calcium Total Bilirubin Direct Bilirubin AST ALT Alkaline Phosphatase Troponin I Total Protein Albumin Globulin Albumin/Globulin Ratio TSH COVID-19 Eval Order SARS-CoV-2 (PCR) POSITIVE A* 05/23/21 05/23/21 06:25 06:25 WBC 2.36 L RBC 5.04 Hgb 14.8 Hct 43.4 MCV 86.1 MCH 29.4 MCHC 34.1 RDW Std Deviation 41.2 RDW Coeff of Jose F 12.9 Plt Count 83 L MPV 11.2 H Immature Gran % (Auto) 0.0 Neut % (Auto) 55.6 Lymph % (Auto) 41.9 Clinch % (Auto) 2.5 Eos % (Auto) 0.0 Baso % (Auto) 0.0 Neut # (Auto) 1.31 L Lymph # (Auto) 0.99 L Clinch # (Auto) 0.06 L Eos # (Auto) 0.00 Baso # (Auto) 0.00 Immature Gran # (Auto) 0.00 Platelet Estimate Polychromasia Echinocytes 2+ D-Dimer ABG pH ABG pCO2 ABG pO2 ABG HCO3 ABG O2 Saturation ABG Base Excess Jason Test Barometric Pressure Oxygen Given Sodium 141 Potassium 4.1 D Chloride 113 H Carbon Dioxide 22 Anion Gap 7.0 BUN 15 Creatinine 0.89 D Est Cr Clr Drug Dosing 163.2 Est GFR ( Amer) 139.7 Est GFR (Non-Af Amer) 120.5 BUN/Creatinine Ratio 17.2 Glucose 164 H Calcium 7.9 L Total Bilirubin 0.5 Direct Bilirubin 0.1 AST 53 H ALT 30 Alkaline Phosphatase 70 Troponin I Total Protein 6.5 Albumin 2.8 L Globulin 3.7 Albumin/Globulin Ratio 0.8 L TSH COVID-19 Eval Order SARS-CoV-2 (PCR) Medications Administered Current Inpatient Medications Acetaminophen (Acetaminophen 325 Mg Tab) 650 mg PO Q4H PRN PRN Reason: Pain or Fever Stop: 06/22/21 00:06 Last Admin: 05/23/21 08:26 Dose: 650 mg Documented by: Al Hydrox/Mg Hydrox/Simethicone (Aluminum/Magnesium Susp 30 Ml Udc) 15 ml PO Q4H PRN PRN Reason: Dyspepsia Stop: 06/22/21 00:06 Albuterol (Albut/Ipratrop 3mg/0.5mg Neb 3 Ml Vial) 3 ml NEB Q4R [facility] Stop: 06/22/21 00:06 Last Admin: 05/23/21 07:12 Dose: 3 ml Documented by: Buspirone HCl (Buspirone 5 Mg Tab) 10 mg PO BID [facility] Stop: 06/22/21 00:06 Last Admin: 05/23/21 08:27 Dose: 10 mg Documented by: Enoxaparin Sodium (Enoxaparin Inj 40 Mg/0.4 Ml Syr) 40 mg SQ Q12 [facility] Stop: 06/22/21 01:59 Last Admin: 05/23/21 01:55 Dose: 40 mg Documented by: Famotidine (Famotidine 20 Mg Tab) 20 mg PO BID [facility] Stop: 06/22/21 00:06 Last Admin: 05/23/21 08:27 Dose: 20 mg Documented by: Fluvoxamine Maleate (Fluvoxamine Maleate 50 Mg Tab) 100 mg PO HS [facility] Stop: 06/22/21 00:06 Last Admin: 05/23/21 01:07 Dose: 100 mg Documented by: Guanfacine HCl (Guanfacine Hcl 1 Mg Tab) 2 mg PO BID [facility] Stop: 06/22/21 00:06 Last Admin: 05/23/21 08:27 Dose: 2 mg Documented by: Remdesivir 100 mg/ Sodium (Chloride) 250 mls @ 250 mls/hr IV Q24H [facility]; Protocol Stop: 05/26/21 20:59 Dexamethasone 6 mg/ Syringe 1.5 mls @ 1 mls/min IV DAILY [facility] Stop: 06/01/21 08:59 Last Admin: 05/23/21 08:27 Dose: 1 mls/min Documented by: Morphine Sulfate (Morphine Sulfate 2 Mg/Ml Carp) 2 mg IV Q30M PRN PRN Reason: Chest Pain Stop: 06/06/21 00:06 Nitroglycerin (Nitroglycerin Sl 0.4 Mg/Tab Tab) 0.4 mg SL UD PRN PRN Reason: Chest Pain Stop: 06/22/21 00:06 Ondansetron HCl (Ondansetron Inj 2 Mg/Ml 2 Ml Vial) 4 mg IV Q6H PRN PRN Reason: Nausea Stop: 06/22/21 00:06 Polyethylene Glycol (Polyethylene (Miralax) 17 Gm Pack) 17 gm PO DAILY PRN PRN Reason: Constipation Stop: 06/22/21 00:06 Sodium Chloride (Sodium Chloride 0.9% 10ml Flush) 30 ml IV Q24H [facility] Stop: 05/27/21 00:08 Last Admin: 05/23/21 03:55 Dose: 30 ml Documented by: Trazodone HCl (Trazodone Hcl 50 Mg Tab) 100 - 150 mg PO HS PRN PRN Reason: Insomnia Stop: 06/22/21 20:59 PG Care Time/CCT Total # of Minutes Spent Total Time Spent with Patient: Total time spent is greater than 50% in coordination of care (as documented) at patient's floor/unit and/or counseling patient: Coding Level of Care Code 12935 Subseq Hosp Care Lvl 2 Diagnoses Pneumonia due to 2019 novel coronavirus U07.1; J12.82 ADHD F90.9 Generalized anxiety disorder F41.1 Autism F84.0 GERD (gastroesophageal reflux disease) K21.9 Acute hypoxemic respiratory failure J96.01
[2021-05-23] MEDS ORDERED: ALBUT/IPRATROP 3MG/0.5MG NEB 3 ML VIAL NEB PRN (11:35)
[2021-05-23] MEDS ORDERED: traZODone HCL 50 MG TAB PO PRN (21:00)
--- NOTE | 2021-05-23 21:04 | Billing Data ---
Date of Service May 23, 2021 Coding Level of Care Code 63826 Initial Inpt Care Lvl 3
[2021-05-23] MEDS: REMDESIVIR 100 MG in SODIUM CHLORIDE 0.9% 230 ML IV SCH (21:06)
--- NOTE | 2021-05-24 05:37 | Electrocardiogram Report ---
Test Reason : Blood Pressure : / mmHG Vent. Rate : 125 BPM Atrial Rate : 125 BPM P-R Int : 138 ms QRS Dur : 098 ms QT Int : 298 ms P-R-T Axes : 009 110 014 degrees QTc Int : 430 ms Sinus tachycardia Right axis deviation Nonspecific T wave abnormality Abnormal ECG When compared with ECG of 09-MAY-2016 23:54, Vent. rate has increased BY 54 BPM Nonspecific T wave abnormality is now Present Confirmed by Taz Flores ([id number]) on 05/24/2021 5:37:06 AM Referred By: REFERRED SELF Confirmed By:Taz Flores
[2021-05-24 07:29] LABS: Basophils # (auto) 0.01 K/uL (0-0.2); Basophils % (auto) 0.1 %; Hematocrit (blood only) 43.4 % (42-52); Hemoglobin 14.9 g/dL (14.0-18.0); Immature Granulocytes # (auto) 0.03 K/uL (0.00-0.02); Immature Granulocytes % (auto) 0.3 %; Lymphocytes # (auto) 1.08 K/uL (1.2-3.4); Lymphocytes % (auto) 12.6 %; Mean Corpuscular Hemoglobin 29.2 pg (25-34); Mean Corpuscular Hgb Conc 34.3 g/dL (32-36); Mean Corpuscular Volume 85.1 fL (80-100); Mean Platelet Volume 11.9 fL (7.4-10.4); Monocytes # (auto) 0.31 K/uL (0.11-0.59); Monocytes % (auto) 3.6 %; Neutrophils # (auto) 7.16 K/uL (1.4-6.5); Neutrophils % (auto) 83.4 %; Platelet Count 105 K/uL (130-400); RDW Coefficient of Variation 13.2 % (11.5-14.5); RDW Standard Deviation 40.7 fL (36.4-46.3); White Blood Count 8.59 K/uL (4.8-10.8)
[2021-05-24 08:01] LABS: Alanine Aminotransferase 28 U/L (12-78); Albumin Level 2.5 gm/dl (3.4-5.0); Aspartate Aminotransferase 38 U/L (15-37); BUN Creatinine Ratio 22.6 (10-20); Bilirubin Direct < 0.1 mg/dl (0-0.2); Blood Urea Nitrogen 18 mg/dl (7-18); C Reactive Protein 1.23 mg/dl (0-0.29); Calcium 8.3 mg/dl (8.5-10.1); Carbon Dioxide 22 mmol/L (21-32); Chloride 114 mmol/L (98-107); Creatinine Clr Calc Pharmacy 187.9 ml/min; Est GFR (African American) 147.5 ml/min; Est GFR (Non-African American) 127.2 ml/min; Glucose 135 mg/dl (70-99); Potassium 4.1 mmol/L (3.5-5.1); Sodium 142 mmol/L (136-145)
[2021-05-24 08:04] LABS: Albumin Globulin Ratio 0.7 (0.9-2); Alkaline Phosphatase 64 U/L (45-117); Bilirubin,Total 0.4 mg/dl (0.2-1); Globulin 3.6 gm/dl (2.5-4.0); Total Protein 6.1 gm/dl (6.4-8.2)
[2021-05-24] MEDS: dexAMETHasone 6 MG in SYRINGE 0 ML IV SCH (09:06)
[2021-05-24] MEDS: busPIRone 5 MG TAB PO SCH ×2 (09:06→20:24)
[2021-05-24] MEDS: ENOXAPARIN INJ 40 MG/0.4 ML SYR SQ SCH ×2 (09:06→20:24)
[2021-05-24] MEDS: guanFACINE HCL 1 MG TAB PO SCH ×2 (09:07→20:24)
[2021-05-24] MEDS: FAMOTIDINE 20 MG TAB PO SCH ×2 (09:07→20:25)
--- NOTE | 2021-05-24 11:37 | Hospitalist Progress Note ---
Date of Service May 24, 2021 Assessment & Plan (1) Pneumonia due to 2019 novel coronavirus: Plan: still on 2L, no distress dexamethasone 6mg IV daily x 10 days, change to PO on discharge Remdesivir x 5 days Lovenox for DVT prophylaxis (2) Acute hypoxemic respiratory failure: Plan: due to COVID pneumonia, stable on 2L, wean as tolerated anticipate discharge in 1-2 days (3) ADHD: Plan: continue home medications (4) Generalized anxiety disorder: Plan: mood is stable (5) Autism: (6) GERD (gastroesophageal reflux disease): Plan: PPI Admission and Anticipated Discharge Date Admission Date: May 22, 2021 Subjective patient says he feels a little worse today, he says he feels dizzy when he stands up he has a poor appetite, dry cough, not sleeping well he is stable on 2L right now, no chest pain, no fever/chills encouraged him to try to eat more he is worried about his mom, I explained that her breathing was worse, had to move her to the ICU discussed that there is good chance she will need intubated and mechanically ventilated I called his father to give him an update labs reviewed, CRP is low at 1.23, Cr stable Review of Systems Review of Systems: All systems reviewed & are unremarkable except as noted in Subjective Constitutional: + fatigue and + weakness; no fever, no chills and no sweats Respiratory: + cough Cardiovascular: no chest pain Gastrointestinal: + early satiety; no abdominal pain, no nausea, no vomiting, no constipation and no diarrhea/loose stools Physical Exam Constitutional: well developed, well nourished and comfortable; no acute distress Neck: trachea midline, no thyromegaly Respiratory: normal respiratory effort, lungs clear to auscultation Cardiovascular: RRR, no murmur, no edema Gastrointestinal (Abdomen): normal bowel sounds, soft, nontender, no hepatosplenomegaly Musculoskeletal: no cyanosis or clubbing, extremities motor strength 5/5 Skin: no rashes, warm and dry Neurologic: CN's II-XI intact bilaterally, moves all extremities and awake; no focal motor deficits Psychiatric: Estimated Intelligence: + below average estimated intelligence Results & Data Results & Data ([facility]) Vital Signs (Past 12 Hours) Vital Signs Temp Pulse Pulse Resp BP Pulse Ox 05/24/21 07:59 76 05/24/21 07:35 36.8 C 86 25 H 104/69 92 05/24/21 03:00 36.9 C 81 20 119/63 92 Laboratory Results Laboratory Results - last 24 hr 05/24/21 05/24/21 06:01 06:01 WBC 8.59 RBC 5.10 Hgb 14.9 Hct 43.4 MCV 85.1 MCH 29.2 MCHC 34.3 RDW Std Deviation 40.7 RDW Coeff of Jose F 13.2 Plt Count 105 L MPV 11.9 H Immature Gran % (Auto) 0.3 Neut % (Auto) 83.4 Lymph % (Auto) 12.6 Hale % (Auto) 3.6 Eos % (Auto) 0.0 Baso % (Auto) 0.1 Neut # (Auto) 7.16 H Lymph # (Auto) 1.08 L Hale # (Auto) 0.31 Eos # (Auto) 0.00 Baso # (Auto) 0.01 Immature Gran # (Auto) 0.03 H Sodium 142 Potassium 4.1 Chloride 114 H Carbon Dioxide 22 Anion Gap 6.0 BUN 18 Creatinine 0.78 Est Cr Clr Drug Dosing 187.9 Est GFR ( Amer) 147.5 Est GFR (Non-Af Amer) 127.2 BUN/Creatinine Ratio 22.6 H Glucose 135 H Calcium 8.3 L Total Bilirubin 0.4 Direct Bilirubin < 0.1 AST 38 H ALT 28 Alkaline Phosphatase 64 C-Reactive Protein 1.23 H Total Protein 6.1 L Albumin 2.5 L Globulin 3.6 Albumin/Globulin Ratio 0.7 L Medications Administered Current Inpatient Medications Acetaminophen (Acetaminophen 325 Mg Tab) 650 mg PO Q4H PRN PRN Reason: Pain or Fever Stop: 06/22/21 00:06 Last Admin: 05/23/21 08:26 Dose: 650 mg Documented by: Al Hydrox/Mg Hydrox/Simethicone (Aluminum/Magnesium Susp 30 Ml Udc) 15 ml PO Q4H PRN PRN Reason: Dyspepsia Stop: 06/22/21 00:06 Albuterol (Albut/Ipratrop 3mg/0.5mg Neb 3 Ml Vial) 3 ml NEB Q4R PRN PRN Reason: Shortness Of Breath Or Wheezing Stop: 06/22/21 00:06 Buspirone HCl (Buspirone 5 Mg Tab) 10 mg PO BID RENZO Stop: 06/22/21 00:06 Last Admin: 05/24/21 09:06 Dose: 10 mg Documented by: Enoxaparin Sodium (Enoxaparin Inj 40 Mg/0.4 Ml Syr) 40 mg SQ Q12 [facility] Stop: 06/22/21 01:59 Last Admin: 05/24/21 09:06 Dose: 40 mg Documented by: Famotidine (Famotidine 20 Mg Tab) 20 mg PO BID [facility] Stop: 06/22/21 00:06 Last Admin: 05/24/21 09:07 Dose: 20 mg Documented by: Fluvoxamine Maleate (Fluvoxamine Maleate 50 Mg Tab) 100 mg PO HS [facility] Stop: 06/22/21 00:06 Last Admin: 05/23/21 21:09 Dose: 100 mg Documented by: Guanfacine HCl (Guanfacine Hcl 1 Mg Tab) 2 mg PO BID [facility] Stop: 06/22/21 00:06 Last Admin: 05/24/21 09:07 Dose: 2 mg Documented by: Remdesivir 100 mg/ Sodium (Chloride) 250 mls @ 250 mls/hr IV Q24H [facility]; Protocol Stop: 05/26/21 20:59 Last Infusion: 05/23/21 22:04 Dose: Infused Documented by: Dexamethasone 6 mg/ Syringe 1.5 mls @ 1 mls/min IV DAILY [facility] Stop: 06/01/21 08:59 Last Admin: 05/24/21 09:06 Dose: 1 mls/min Documented by: Morphine Sulfate (Morphine Sulfate 2 Mg/Ml Carp) 2 mg IV Q30M PRN PRN Reason: Chest Pain Stop: 06/06/21 00:06 Nitroglycerin (Nitroglycerin Sl 0.4 Mg/Tab Tab) 0.4 mg SL UD PRN PRN Reason: Chest Pain Stop: 06/22/21 00:06 Ondansetron HCl (Ondansetron Inj 2 Mg/Ml 2 Ml Vial) 4 mg IV Q6H PRN PRN Reason: Nausea Stop: 06/22/21 00:06 Polyethylene Glycol (Polyethylene (Miralax) 17 Gm Pack) 17 gm PO DAILY PRN PRN Reason: Constipation Stop: 06/22/21 00:06 Sodium Chloride (Sodium Chloride 0.9% 10ml Flush) 30 ml IV Q24H [facility] Stop: 05/27/21 00:08 Last Admin: 05/23/21 22:04 Dose: 30 ml Documented by: Trazodone HCl (Trazodone Hcl 50 Mg Tab) 100 - 150 mg PO HS PRN PRN Reason: Insomnia Stop: 06/22/21 20:59 PG Care Time/CCT Total # of Minutes Spent Total Time Spent with Patient: Total time spent is greater than 50% in coordination of care (as documented) at patient's floor/unit and/or counseling patient: Coding Level of Care Code 70005 Subseq Hosp Care Lvl 2 Diagnoses Pneumonia due to 2019 novel coronavirus U07.1; J12.82 Acute hypoxemic respiratory failure J96.01 ADHD F90.9 Generalized anxiety disorder F41.1 Autism F84.0 GERD (gastroesophageal reflux disease) K21.9
--- NOTE | 2021-05-24 13:20 | Electrocardiogram Report ---
Test Reason : Blood Pressure : / mmHG Vent. Rate : 072 BPM Atrial Rate : 072 BPM P-R Int : 144 ms QRS Dur : 088 ms QT Int : 396 ms P-R-T Axes : 043 096 049 degrees QTc Int : 433 ms Normal sinus rhythm Rightward axis Borderline ECG When compared with ECG of 22-MAY-2021 20:30, Vent. rate has decreased BY 53 BPM Incomplete right bundle branch block is no longer Present Confirmed by Cooper Camarillo ([id number]) on 05/24/2021 1:20:17 PM Referred By: REFERRED SELF Confirmed By:Cooper Camarillo
--- NOTE | 2021-05-24 13:34 | Electrocardiogram Report ---
Test Reason : Blood Pressure : / mmHG Vent. Rate : 085 BPM Atrial Rate : 085 BPM P-R Int : 136 ms QRS Dur : 086 ms QT Int : 364 ms P-R-T Axes : 039 089 030 degrees QTc Int : 433 ms Normal sinus rhythm Low voltage QRS Borderline ECG When compared with ECG of 23-MAY-2021 16:01, (unconfirmed) No significant change was found Confirmed by Cooper Camarillo ([id number]) on 05/24/2021 1:34:27 PM Referred By: REFERRED SELF Confirmed By:Cooper Camarillo
[2021-05-24] MEDS: fluvoxaMINE MALEATE 50 MG TAB PO SCH (20:24)
[2021-05-24] MEDS: REMDESIVIR 100 MG in SODIUM CHLORIDE 0.9% 230 ML IV SCH (20:25)
[2021-05-24] MEDS: SODIUM CHLORIDE 0.9% 10ML FLUSH IV SCH (21:52)
[2021-05-25 07:09] LABS: Basophils # (auto) 0.01 K/uL (0-0.2); Basophils % (auto) 0.2 %; Hematocrit (blood only) 43.2 % (42-52); Hemoglobin 14.7 g/dL (14.0-18.0); Immature Granulocytes # (auto) 0.01 K/uL (0.00-0.02); Immature Granulocytes % (auto) 0.2 %; Lymphocytes # (auto) 1.12 K/uL (1.2-3.4); Lymphocytes % (auto) 21.3 %; Mean Corpuscular Hemoglobin 29.4 pg (25-34); Mean Corpuscular Volume 86.4 fL (80-100); Mean Platelet Volume 11.6 fL (7.4-10.4); Monocytes # (auto) 0.48 K/uL (0.11-0.59); Monocytes % (auto) 9.1 %; Neutrophils # (auto) 3.64 K/uL (1.4-6.5); Neutrophils % (auto) 69.2 %; Platelet Count 121 K/uL (130-400); RDW Coefficient of Variation 13.5 % (11.5-14.5); RDW Standard Deviation 42.4 fL (36.4-46.3); White Blood Count 5.26 K/uL (4.8-10.8)
[2021-05-25 07:27] LABS: Albumin Level 2.5 gm/dl (3.4-5.0); BUN Creatinine Ratio 28.1 (10-20); Bilirubin Direct 0.1 mg/dl (0-0.2); Calcium 8.3 mg/dl (8.5-10.1); Creatinine Clr Calc Pharmacy 172.3 ml/min; Est GFR (Non-African American) 123.4 ml/min
[2021-05-25 07:30] LABS: Albumin Globulin Ratio 0.7 (0.9-2); Bilirubin,Total 0.6 mg/dl (0.2-1); Globulin 3.6 gm/dl (2.5-4.0); Total Protein 6.1 gm/dl (6.4-8.2)
--- NOTE | 2021-05-25 09:40 | Hospitalist Progress Note ---
Date of Service May 25, 2021 Assessment & Plan (1) Pneumonia due to 2019 novel coronavirus: Plan: still on 2-3L, no distress sit upright today, encourage deep breathing dexamethasone 6mg IV daily x 10 days, day 4 today Remdesivir x 5 days, day 4 today Lovenox for DVT prophylaxis (2) Acute hypoxemic respiratory failure: Plan: due to COVID pneumonia, stable on 2-3L, wean as tolerated anticipate discharge after the weekend if we can get him off oxygen (3) ADHD: Plan: continue home medications (4) Generalized anxiety disorder: Plan: mood is stable (5) Autism: (6) GERD (gastroesophageal reflux disease): Plan: PPI Admission and Anticipated Discharge Date Admission Date: May 22, 2021 Subjective I updated the patient about his mother, she had to move to ICU, intubated last evening the patient says he feels okay, still really tired has a dry cough, better with Codeine not really feeling short of breath, on 2-3L this morning still not eating great but he does not eat well at baseline will reach out to his father today for update encouraged patient to get OOB to chair today, needs to be upright for lungs, RN knows the plan Review of Systems Review of Systems: All systems reviewed & are unremarkable except as noted in Subjective Constitutional: + fatigue and + weakness; no fever Respiratory: + cough and + dyspnea on exertion; no dyspnea Gastrointestinal: no abdominal pain, no nausea, no vomiting, no constipation and no diarrhea/loose stools Physical Exam Constitutional: well developed, well nourished and comfortable; no acute distress Neck: trachea midline, no thyromegaly Respiratory: normal respiratory effort, lungs clear to auscultation Cardiovascular: RRR, no murmur, no edema Gastrointestinal (Abdomen): normal bowel sounds, soft, nontender, no hepatosplenomegaly Musculoskeletal: no cyanosis or clubbing, extremities motor strength 5/5 Skin: no rashes, warm and dry Neurologic: CN's II-XI intact bilaterally, moves all extremities and awake; no focal motor deficits Psychiatric: Estimated Intelligence: + below average estimated intelligence Results & Data Results & Data ([facility]) Vital Signs (Past 12 Hours) Vital Signs Temp Pulse Pulse Resp BP Pulse Ox 05/25/21 08:00 62 05/25/21 07:33 36.4 C L 69 16 109/69 94 05/25/21 03:49 36.9 C 68 20 98/65 L 91 05/24/21 23:11 36.7 C 78 17 113/66 94 Laboratory Results Laboratory Results - last 24 hr 05/25/21 05/25/21 05:45 05:45 WBC 5.26 RBC 5.00 Hgb 14.7 Hct 43.2 MCV 86.4 MCH 29.4 MCHC 34.0 RDW Std Deviation 42.4 RDW Coeff of Jose F 13.5 Plt Count 121 L MPV 11.6 H Immature Gran % (Auto) 0.2 Neut % (Auto) 69.2 Lymph % (Auto) 21.3 [place] % (Auto) 9.1 Eos % (Auto) 0.0 Baso % (Auto) 0.2 Neut # (Auto) 3.64 Lymph # (Auto) 1.12 L [place] # (Auto) 0.48 Eos # (Auto) 0.00 Baso # (Auto) 0.01 Immature Gran # (Auto) 0.01 Sodium 144 Potassium 4.0 Chloride 115 H Carbon Dioxide 23 Anion Gap 6.0 BUN 23 H Creatinine 0.84 Est Cr Clr Drug Dosing 172.3 Est GFR ( Amer) 143.0 Est GFR (Non-Af Amer) 123.4 BUN/Creatinine Ratio 28.1 H Glucose 123 H Calcium 8.3 L Total Bilirubin 0.6 Direct Bilirubin 0.1 AST 44 H ALT 32 Alkaline Phosphatase 60 Total Protein 6.1 L Albumin 2.5 L Globulin 3.6 Albumin/Globulin Ratio 0.7 L Medications Administered Current Inpatient Medications Acetaminophen (Acetaminophen 325 Mg Tab) 650 mg PO Q4H PRN PRN Reason: Pain or Fever Stop: 06/22/21 00:06 Last Admin: 05/23/21 08:26 Dose: 650 mg Documented by: Al Hydrox/Mg Hydrox/Simethicone (Aluminum/Magnesium Susp 30 Ml Udc) 15 ml PO Q4H PRN PRN Reason: Dyspepsia Stop: 06/22/21 00:06 Albuterol (Albut/Ipratrop 3mg/0.5mg Neb 3 Ml Vial) 3 ml NEB Q4R PRN PRN Reason: Shortness Of Breath Or Wheezing Stop: 06/22/21 00:06 Buspirone HCl (Buspirone 5 Mg Tab) 10 mg PO BID [facility] Stop: 06/22/21 00:06 Last Admin: 05/24/21 20:24 Dose: 10 mg Documented by: Enoxaparin Sodium (Enoxaparin Inj 40 Mg/0.4 Ml Syr) 40 mg SQ Q12 [facility] Stop: 06/22/21 01:59 Last Admin: 05/24/21 20:24 Dose: 40 mg Documented by: Famotidine (Famotidine 20 Mg Tab) 20 mg PO BID [facility] Stop: 06/22/21 00:06 Last Admin: 05/24/21 20:25 Dose: 20 mg Documented by: Fluvoxamine Maleate (Fluvoxamine Maleate 50 Mg Tab) 100 mg PO HS [facility] Stop: 06/22/21 00:06 Last Admin: 05/24/21 20:24 Dose: 100 mg Documented by: Guaifenesin/Codeine Phosphate (Guaifenesin/Codeine 200mg/20mg 10ml Udc) 10 ml PO Q6H PRN PRN Reason: Cough Stop: 06/23/21 16:52 Last Admin: 05/24/21 20:32 Dose: 10 ml Documented by: Guanfacine HCl (Guanfacine Hcl 1 Mg Tab) 2 mg PO BID [facility] Stop: 06/22/21 00:06 Last Admin: 05/24/21 20:24 Dose: 2 mg Documented by: Remdesivir 100 mg/ Sodium (Chloride) 250 mls @ 250 mls/hr IV Q24H [facility]; Protocol Stop: 05/26/21 20:59 Last Infusion: 05/24/21 21:52 Dose: Infused Documented by: Dexamethasone 6 mg/ Syringe 1.5 mls @ 1 mls/min IV DAILY [facility] Stop: 06/01/21 08:59 Last Admin: 05/24/21 09:06 Dose: 1 mls/min Documented by: Morphine Sulfate (Morphine Sulfate 2 Mg/Ml Carp) 2 mg IV Q30M PRN PRN Reason: Chest Pain Stop: 06/06/21 00:06 Nitroglycerin (Nitroglycerin Sl 0.4 Mg/Tab Tab) 0.4 mg SL UD PRN PRN Reason: Chest Pain Stop: 06/22/21 00:06 Ondansetron HCl (Ondansetron Inj 2 Mg/Ml 2 Ml Vial) 4 mg IV Q6H PRN PRN Reason: Nausea Stop: 06/22/21 00:06 Polyethylene Glycol (Polyethylene (Miralax) 17 Gm Pack) 17 gm PO DAILY PRN PRN Reason: Constipation Stop: 06/22/21 00:06 Sodium Chloride (Sodium Chloride 0.9% 10ml Flush) 30 ml IV Q24H [facility] Stop: 05/27/21 00:08 Last Admin: 05/24/21 21:52 Dose: 30 ml Documented by: Trazodone HCl (Trazodone Hcl 50 Mg Tab) 100 - 150 mg PO HS PRN PRN Reason: Insomnia Stop: 06/22/21 20:59 PG Care Time/CCT Total # of Minutes Spent Total Time Spent with Patient: Total time spent is greater than 50% in coordination of care (as documented) at patient's floor/unit and/or counseling patient: Coding Level of Care Code 64138 Subseq Hosp Care Lvl 2 Diagnoses Pneumonia due to 2019 novel coronavirus U07.1; J12.82 Acute hypoxemic respiratory failure J96.01 ADHD F90.9 Generalized anxiety disorder F41.1 Autism F84.0 GERD (gastroesophageal reflux disease) K21.9
[2021-05-25] MEDS: ENOXAPARIN INJ 40 MG/0.4 ML SYR SQ SCH ×2 (09:49→21:23)
[2021-05-25] MEDS: dexAMETHasone 6 MG in SYRINGE 0 ML IV SCH (09:50)
[2021-05-25] MEDS: FAMOTIDINE 20 MG TAB PO SCH ×2 (09:51→21:24)
[2021-05-25] MEDS: guanFACINE HCL 1 MG TAB PO SCH ×2 (09:51→21:24)
[2021-05-25] MEDS: busPIRone 5 MG TAB PO SCH ×2 (09:51→21:23)
[2021-05-25] MEDS: REMDESIVIR 100 MG in SODIUM CHLORIDE 0.9% 230 ML IV SCH (20:13)
[2021-05-25] MEDS: fluvoxaMINE MALEATE 50 MG TAB PO SCH (21:25)
[2021-05-25] MEDS: SODIUM CHLORIDE 0.9% 10ML FLUSH IV SCH (21:25)
[2021-05-26 07:38] LABS: BUN Creatinine Ratio 29.6 (10-20); Blood Urea Nitrogen 22 mg/dl (7-18); C Reactive Protein 0.83 mg/dl (0-0.29); Calcium 8.5 mg/dl (8.5-10.1); Carbon Dioxide 26 mmol/L (21-32); Chloride 112 mmol/L (98-107); Creatinine Clr Calc Pharmacy 197.3 ml/min; Est GFR (African American) > 150.0 ml/min; Glucose 153 mg/dl (70-99); Potassium 4.1 mmol/L (3.5-5.1); Sodium 145 mmol/L (136-145)
[2021-05-26 07:46] LABS: Mean Corpuscular Hgb Conc 34.7 g/dL (32-36); Mean Platelet Volume 11.2 fL (7.4-10.4); Platelet Count 132 K/uL (130-400)
[2021-05-26 08:03] LABS: Hematocrit (blood only) 44.4 % (42-52); Hemoglobin 15.4 g/dL (14.0-18.0); Mean Corpuscular Hemoglobin 29.8 pg (25-34); RDW Coefficient of Variation 13.3 % (11.5-14.5); Red Blood Count 5.16 M/uL (4.7-6.1); White Blood Count 5.46 K/uL (4.8-10.8)
[2021-05-26] MEDS: dexAMETHasone 6 MG in SYRINGE 0 ML IV SCH (08:17)
[2021-05-26] MEDS: guanFACINE HCL 1 MG TAB PO SCH ×2 (08:17→20:56)
[2021-05-26] MEDS: ENOXAPARIN INJ 40 MG/0.4 ML SYR SQ SCH ×2 (08:17→20:55)
[2021-05-26] MEDS: busPIRone 5 MG TAB PO SCH ×2 (08:18→20:56)
[2021-05-26] MEDS: FAMOTIDINE 20 MG TAB PO SCH ×2 (08:19→20:56)
--- NOTE | 2021-05-26 08:54 | XRay Report ---
XR chest 1V portable CLINICAL HISTORY: COVID follow up COMPARISON STUDY: Chest radiograph May 22, 2021. FINDINGS: Lung volumes are normal. There is no pneumothorax or pleural effusion. Cardiac size is norm al. Mediastinal contours are normal. There is no evidence for pulmonary edema. Right lower lung opaci ty similar to prior exam. Left lung opacities have slightly improved. IMPRESSION: Bilateral airspace opacities. Slight improvement in left lung opacity. The findings repre sent viral pneumonia. ACT 112: Negative or not required by law. Electronically signed by: Mitchel Mcghee M.D. 05/26/2021 8:53 AM
[2021-05-26] MEDS ORDERED: FUROSEMIDE 10 MG in SYRINGE 0 ML IV ONE (08:55)
--- NOTE | 2021-05-26 08:58 | Hospitalist Progress Note ---
Date of Service May 26, 2021 Assessment & Plan (1) Pneumonia due to 2019 novel coronavirus: Plan: still on 3L, no distress sit upright today, encourage deep breathing dexamethasone 6mg IV daily x 10 days, day 5 today Remdesivir x 5 days, day 5 today Lovenox for DVT prophylaxis give Lasix 10mg IV now, see if we can get her off oxygen (2) Acute hypoxemic respiratory failure: Plan: due to COVID pneumonia, stable on 3L, wean as tolerated anticipate discharge after the weekend if we can get him off oxygen try Lasix 10mg IV now (3) ADHD: Plan: continue home medications (4) Generalized anxiety disorder: Plan: mood is stable (5) Autism: (6) GERD (gastroesophageal reflux disease): Plan: PPI Admission and Anticipated Discharge Date Admission Date: May 22, 2021 Subjective patient is sitting in a chair, he says his main issue is coughing, he feels fatigued he did eating well last night, no appetite this morning labs reviewed, WBC and Cr normal, CRP is < 1 CXR shows some improvement will give Lasix 10mg IV this morning, see if he can get negative fluid balance and see if oxygen requirements can decrease Review of Systems Review of Systems: All systems reviewed & are unremarkable except as noted in Subjective Constitutional: + fatigue and + weakness; no fever, no chills and no sweats Respiratory: + cough, + dyspnea and + dyspnea on exertion; no sputum production and no wheezing Cardiovascular: no chest pain and no edema Gastrointestinal: no abdominal pain, no nausea, no vomiting, no constipation and no diarrhea/loose stools Physical Exam Constitutional: well developed, well nourished and comfortable; no acute distress Neck: trachea midline, no thyromegaly Respiratory: normal respiratory effort, lungs clear to auscultation Cardiovascular: RRR, no murmur, no edema Gastrointestinal (Abdomen): normal bowel sounds, soft, nontender, no hepatosplenomegaly Musculoskeletal: no cyanosis or clubbing, extremities motor strength 5/5 Skin: no rashes, warm and dry Neurologic: CN's II-XI intact bilaterally, moves all extremities and awake; no focal motor deficits Psychiatric: Orientation: alert and oriented x 3 Affect: + anxious affect Estimated Intelligence: + below average estimated intelligence Results & Data Results & Data ([facility]) Vital Signs (Past 12 Hours) Vital Signs Temp Pulse Pulse Resp BP Pulse Ox 05/26/21 07:46 49 L 05/26/21 06:56 37.1 C 58 L 19 120/80 94 05/26/21 03:49 36.5 C 60 18 118/85 92 05/25/21 23:56 47 L 05/25/21 22:04 36.8 C 43 L 17 109/66 94 Laboratory Results Laboratory Results - last 24 hr 05/26/21 05/26/21 04:44 04:44 WBC 5.46 RBC 5.16 Hgb 15.4 Hct 44.4 MCV 86.0 MCH 29.8 MCHC 34.7 RDW Std Deviation 42.0 RDW Coeff of Jose F 13.3 Plt Count 132 MPV 11.2 H Sodium 145 Potassium 4.1 Chloride 112 H Carbon Dioxide 26 Anion Gap 7.0 BUN 22 H Creatinine 0.74 Est Cr Clr Drug Dosing 197.3 Est GFR ( Amer) > 150.0 Est GFR (Non-Af Amer) 130.0 BUN/Creatinine Ratio 29.6 H Glucose 153 H Calcium 8.5 C-Reactive Protein 0.83 H Medications Administered Current Inpatient Medications Acetaminophen (Acetaminophen 325 Mg Tab) 650 mg PO Q4H PRN PRN Reason: Pain or Fever Stop: 06/22/21 00:06 Last Admin: 05/23/21 08:26 Dose: 650 mg Documented by: Al Hydrox/Mg Hydrox/Simethicone (Aluminum/Magnesium Susp 30 Ml Udc) 15 ml PO Q4H PRN PRN Reason: Dyspepsia Stop: 06/22/21 00:06 Albuterol (Albut/Ipratrop 3mg/0.5mg Neb 3 Ml Vial) 3 ml NEB Q4R PRN PRN Reason: Shortness Of Breath Or Wheezing Stop: 06/22/21 00:06 Buspirone HCl (Buspirone 5 Mg Tab) 10 mg PO BID RENZO Stop: 06/22/21 00:06 Last Admin: 05/26/21 08:18 Dose: 10 mg Documented by: Enoxaparin Sodium (Enoxaparin Inj 40 Mg/0.4 Ml Syr) 40 mg SQ Q12 RENZO Stop: 06/22/21 01:59 Last Admin: 05/26/21 08:17 Dose: 40 mg Documented by: Famotidine (Famotidine 20 Mg Tab) 20 mg PO BID RENZO Stop: 06/22/21 00:06 Last Admin: 05/26/21 08:19 Dose: 20 mg Documented by: Fluvoxamine Maleate (Fluvoxamine Maleate 50 Mg Tab) 100 mg PO HS RENZO Stop: 06/22/21 00:06 Last Admin: 05/25/21 21:25 Dose: 100 mg Documented by: Guaifenesin/Codeine Phosphate (Guaifenesin/Codeine 200mg/20mg 10ml Udc) 10 ml PO Q6H PRN PRN Reason: Cough Stop: 06/23/21 16:52 Last Admin: 05/26/21 08:27 Dose: 10 ml Documented by: Guanfacine HCl (Guanfacine Hcl 1 Mg Tab) 2 mg PO BID RENZO Stop: 06/22/21 00:06 Last Admin: 05/26/21 08:17 Dose: 2 mg Documented by: Remdesivir 100 mg/ Sodium (Chloride) 250 mls @ 250 mls/hr IV Q24H RENZO; Protocol Stop: 05/26/21 20:59 Last Infusion: 05/25/21 21:26 Dose: Infused Documented by: Dexamethasone 6 mg/ Syringe 1.5 mls @ 1 mls/min IV DAILY RENZO Stop: 06/01/21 08:59 Last Admin: 05/26/21 08:17 Dose: 1 mls/min Documented by: Furosemide 10 mg/ Syringe 1 mls @ 4 mls/min IV ONE ONE Stop: 05/26/21 08:56 Morphine Sulfate (Morphine Sulfate 2 Mg/Ml Carp) 2 mg IV Q30M PRN PRN Reason: Chest Pain Stop: 06/06/21 00:06 Nitroglycerin (Nitroglycerin Sl 0.4 Mg/Tab Tab) 0.4 mg SL UD PRN PRN Reason: Chest Pain Stop: 06/22/21 00:06 Ondansetron HCl (Ondansetron Inj 2 Mg/Ml 2 Ml Vial) 4 mg IV Q6H PRN PRN Reason: Nausea Stop: 06/22/21 00:06 Polyethylene Glycol (Polyethylene (Miralax) 17 Gm Pack) 17 gm PO DAILY PRN PRN Reason: Constipation Stop: 06/22/21 00:06 Sodium Chloride (Sodium Chloride 0.9% 10ml Flush) 30 ml IV Q24H RENZO Stop: 05/27/21 00:08 Last Admin: 05/25/21 21:25 Dose: 30 ml Documented by: Trazodone HCl (Trazodone Hcl 50 Mg Tab) 100 - 150 mg PO HS PRN PRN Reason: Insomnia Stop: 06/22/21 20:59 PG Care Time/CCT Total # of Minutes Spent Total Time Spent with Patient: Total time spent is greater than 50% in coordination of care (as documented) at patient's floor/unit and/or counseling patient: Coding Level of Care Code 81445 Subseq Hosp Care Lvl 2 Diagnoses Pneumonia due to 2019 novel coronavirus U07.1; J12.82 Acute hypoxemic respiratory failure J96.01 ADHD F90.9 Generalized anxiety disorder F41.1 Autism F84.0 GERD (gastroesophageal reflux disease) K21.9
[2021-05-26] MEDS ORDERED: FUROSEMIDE 40 MG/4 ML VIAL IV ONE (09:15)
[2021-05-26] MEDS: REMDESIVIR 100 MG in SODIUM CHLORIDE 0.9% 230 ML IV SCH (19:49)
[2021-05-26] MEDS: fluvoxaMINE MALEATE 50 MG TAB PO SCH (20:56)
[2021-05-26] MEDS: SODIUM CHLORIDE 0.9% 10ML FLUSH IV SCH (20:56)
[2021-05-27] MEDS: busPIRone 5 MG TAB PO SCH ×2 (08:25→20:46)
[2021-05-27] MEDS: dexAMETHasone 6 MG in SYRINGE 0 ML IV SCH (08:25)
[2021-05-27] MEDS: FAMOTIDINE 20 MG TAB PO SCH ×2 (08:25→20:47)
[2021-05-27] MEDS: ENOXAPARIN INJ 40 MG/0.4 ML SYR SQ SCH ×2 (08:25→20:47)
[2021-05-27] MEDS: guanFACINE HCL 1 MG TAB PO SCH ×2 (08:26→20:46)
--- NOTE | 2021-05-27 18:22 | Hospitalist Progress Note ---
Date of Service May 27, 2021 Assessment & Plan (1) Pneumonia due to 2019 novel coronavirus: Plan: Weaned down to 2 L nasal cannula pulse ox is 91% sit upright today, encourage deep breathing-ordered incentive spirometry and discussed with patient dexamethasone 6mg IV daily x 10 days, day 6 today Completed 5 days of Remdesivir x 5 days Lovenox for DVT prophylaxis Continue guaifenesin with codeine as needed for cough Received Lasix 10mg IV x1 on 05/26 (2) Acute hypoxemic respiratory failure: Plan: due to COVID pneumonia, weaning down to 2 L as above (3) ADHD: Plan: continue home guanfacine, but holding home Concerta (4) Generalized anxiety disorder: Plan: mood is stable Continue home fluvoxamine, trazodone, BuSpar (5) Autism: Plan: Supportive care (6) GERD (gastroesophageal reflux disease): Plan: Continue famotidine Plan: DVT prophylaxis-Lovenox 40 mg SQ every 12 Disposition-continued stay, would like to wean off O2 for discharge We will call father with [phone] Admission and Anticipated Discharge Date Admission Date: May 22, 2021 Subjective Patient denies shortness of breath. He is coughing mildly. No chest pain or abdominal pain. He does not have very good appetite but is eating fruit. He remains on 2 L nasal cannula. He does not have an incentive spirometer at his bedside. He reports when he gets out of bed to walk to the toilet and back he is not short of breath. Telemetry with sinus bradycardia with rates in the 40s Review of Systems Review of Systems: All systems reviewed & are unremarkable except as noted in HPI & below Physical Exam Constitutional: WD/WN, vitals as above Eyes: + anicteric sclerae Neck: trachea midline, no thyromegaly Respiratory: normal respiratory effort, lungs clear to auscultation Cardiovascular: RRR, no murmur, no edema Chest (Breasts): Chest: normal inspection of chest Gastrointestinal (Abdomen): normal bowel sounds, soft, nontender, no hepatosplenomegaly Musculoskeletal: Extremities: extremities normal to inspection; no cyanosis and no clubbing Skin: no rashes, warm and dry Neurologic: moves all extremities and awake; no focal motor deficits Psychiatric: Orientation: alert, oriented to person, oriented to place and cooperative Eye Contact: + poor eye contact Lymphatic: no lymphedema Results & Data Results & Data ([facility]) Vital Signs (Past 12 Hours) Vital Signs Temp Pulse Pulse Resp BP Pulse Ox 05/27/21 15:41 36.4 C L 53 L 12 103/69 95 05/27/21 11:37 36.8 C 45 L 17 114/62 94 05/27/21 07:36 36.6 C 57 L 15 106/59 L 93 05/27/21 07:00 43 L PG Care Time/CCT Total # of Minutes Spent Total Time Spent with Patient: Total time spent is greater than 50% in coordination of care (as documented) at patient's floor/unit and/or counseling patient: Coding Level of Care Code 11324 Subseq Hosp Care Lvl 2 Diagnoses Pneumonia due to 2019 novel coronavirus U07.1; J12.82 Acute hypoxemic respiratory failure J96.01 ADHD F90.9 Generalized anxiety disorder F41.1 Autism F84.0 GERD (gastroesophageal reflux disease) K21.9
[2021-05-27] MEDS: fluvoxaMINE MALEATE 50 MG TAB PO SCH (20:46)
[2021-05-28] MEDS: dexAMETHasone 6 MG in SYRINGE 0 ML IV SCH (08:51)
[2021-05-28] MEDS: guanFACINE HCL 1 MG TAB PO SCH ×2 (08:51→21:03)
[2021-05-28] MEDS: FAMOTIDINE 20 MG TAB PO SCH ×2 (08:52→21:03)
[2021-05-28] MEDS: busPIRone 5 MG TAB PO SCH ×2 (08:52→21:02)
[2021-05-28] MEDS: ENOXAPARIN INJ 40 MG/0.4 ML SYR SQ SCH ×2 (08:52→21:02)
--- NOTE | 2021-05-28 17:36 | Hospitalist Progress Note ---
Date of Service May 28, 2021 Assessment & Plan (1) Pneumonia due to 2019 novel coronavirus: Plan: Weaned down to 1 L nasal cannula pulse ox is 93%-overall much improved -Continue to sit upright, encourage deep breathing-ordered incentive spirometry and discussed with patient-he is doing this and has it in his bed with him Continue dexamethasone 6mg IV daily x 10 days, day 7 today Completed 5 days of Remdesivir x 5 days Lovenox for DVT prophylaxis Continue guaifenesin with codeine as needed for cough Received Lasix 10mg IV x1 on 05/26 Follow chest x-ray to resolution as an outpatient in 3 to 4 weeks (2) Acute hypoxemic respiratory failure: Plan: due to COVID pneumonia, weaned down to 1 L today-much improved We will order two-step walk test for in the morning to see if he qualifies for home oxygen (3) ADHD: Plan: continue home guanfacine, but holding home Concerta (4) Generalized anxiety disorder: Plan: mood is stable Continue home fluvoxamine, trazodone, BuSpar (5) Autism: Plan: Supportive care (6) GERD (gastroesophageal reflux disease): Plan: Continue famotidine Plan: DVT prophylaxis-Lovenox 40 mg SQ every 12 Disposition-continued stay, would like to wean off O2 for discharge-hopefully by tomorrow Will call father with update again [phone] Admission and Anticipated Discharge Date Admission Date: May 22, 2021 Subjective Patient denies any problems. He still has a mild cough, but does not feel short of breath at rest or with walking across the room. He is weaned down to 1 L and was 93% when I saw him. His appetite is a little bit better. Telemetry with sinus bradycardia with rates in the 40s Review of Systems Review of Systems: All systems reviewed & are unremarkable except as noted in HPI & below Physical Exam Constitutional: WD/WN, vitals as above Eyes: + anicteric sclerae Neck: trachea midline, no thyromegaly Respiratory: normal respiratory effort, lungs clear to auscultation Cardiovascular: RRR, no murmur, no edema Chest (Breasts): Chest: normal inspection of chest Gastrointestinal (Abdomen): normal bowel sounds, soft, nontender, no hepatosplenomegaly Musculoskeletal: Extremities: extremities normal to inspection; no cyanosis and no clubbing Skin: no rashes, warm and dry Neurologic: moves all extremities and awake; no focal motor deficits Psychiatric: Orientation: alert, oriented to person, oriented to place and cooperative Eye Contact: + poor eye contact Lymphatic: no lymphedema Results & Data Results & Data ([facility]) Vital Signs (Past 12 Hours) Vital Signs Temp Pulse Pulse Resp BP BP Pulse Ox 05/28/21 15:45 93 05/28/21 15:29 36.3 C L 50 L 14 111/68 93 05/28/21 11:00 36.3 C L 51 L 14 102/59 L 94 05/28/21 07:33 36.5 C 45 L 15 105/71 93 05/28/21 07:00 40 L PG Care Time/CCT Total # of Minutes Spent Total Time Spent with Patient: Total time spent is greater than 50% in coordination of care (as documented) at patient's floor/unit and/or counseling patient: Coding Level of Care Code 80550 Subseq Hosp Care Lvl 2 Diagnoses Pneumonia due to 2019 novel coronavirus U07.1; J12.82 Acute hypoxemic respiratory failure J96.01 ADHD F90.9 Generalized anxiety disorder F41.1 Autism F84.0 GERD (gastroesophageal reflux disease) K21.9
[2021-05-28] MEDS: fluvoxaMINE MALEATE 50 MG TAB PO SCH (21:02)
[2021-05-29] MEDS: dexAMETHasone 6 MG in SYRINGE 0 ML IV SCH (08:39)
[2021-05-29] MEDS: busPIRone 5 MG TAB PO SCH (08:39)
[2021-05-29] MEDS: ENOXAPARIN INJ 40 MG/0.4 ML SYR SQ SCH (08:40)
[2021-05-29] MEDS: FAMOTIDINE 20 MG TAB PO SCH (08:40)
[2021-05-29] MEDS: guanFACINE HCL 1 MG TAB PO SCH (08:40)
--- NOTE | 2021-05-29 11:34 | Discharge Summary ---
Date of Service May 29, 2021 Admission HPI Per Admitting Provider 21 yo M with hx ADHD, autism, gerd brought to ER for symptoms of nausea, stomach pain. States his symptoms started 1 week ago. His father tested positive for COVID from a positive contact at work 10 days ago. He denies any symptoms of chest pain, shortness of breath. He attests to having night sweats, chills, no fevers. Some nausea and abdominal pain,no diarrhea, no vomiting. has not been vaccinated for COVID. No known immunodeficiencies. Principal Diagnosis COVID-19 Pneumonia,Acute respiratory failure with hypoxia Discharge Exam Constitutional WD/WN, vitals as above Eyes + anicteric sclerae Neck trachea midline, no thyromegaly Respiratory normal respiratory effort, lungs clear to auscultation Cardiovascular RRR, no murmur, no edema Chest (Breasts) Chest: normal inspection of chest Gastrointestinal (Abdomen) normal bowel sounds, soft, nontender, no hepatosplenomegaly Musculoskeletal Extremities: extremities normal to inspection; no cyanosis and no clubbing Skin no rashes, warm and dry Neurologic moves all extremities and awake; no focal motor deficits Psychiatric Orientation: alert, oriented to person, oriented to place and cooperative Eye Contact: + poor eye contact Lymphatic no lymphedema Discharge Data Allergies Allergy/AdvReac Type Severity Reaction Status Date / Time cefuroxime AdvReac Intermediate N/V Verified 05/22/21 19:56 amoxicillin [From Augmentin] AdvReac Mild Abdominal Verified 05/22/21 19:56 distress clavulanic acid AdvReac Mild Abdominal Verified 05/22/21 19:56 [From Augmentin] distress Consultations 05/22/21 21:56 ED Decision to Admit Stat Hospital Course (1) Pneumonia due to 2019 novel coronavirus: Weaned off O2 and doing very well-overall much improved finish out course of dexamethasone 6mg daily x 10 days-3 more days of po prescribed to pharmacy Completed 5 days of Remdesivir x 5 days Lovenox for DVT prophylaxis Received Lasix 10mg IV x1 on 05/26 Follow chest x-ray to resolution as an outpatient in 4 weeks (2) Acute hypoxemic respiratory failure: due to COVID pneumonia,now resolved passed two-step walk test -no home O2 needed (3) ADHD: continue home guanfacine,and Concerta (4) Generalized anxiety disorder: mood is stable Continue home fluvoxamine, trazodone, BuSpar (5) Autism: Supportive care (6) GERD (gastroesophageal reflux disease): Continue famotidine DVT prophylaxis-Lovenox 40 mg SQ every 12 Disposition-dc to home Discussed discharge plans with father [phone] Total Time Total Time Spent Total Time Spent (In Minutes): 35 min Discharge Plan Discharge Items Patient Disposition: Home - Self-Care Reason For Visit: COVID HYPOXIA Discharge Diagnosis: COVID-19 Pneumonia, Hypoxia Condition on Discharge: Fair Activity: As commented below Lifting: Gradually increase as tolerated Bathing: No limitations Exercise/Sports: Gradually increase as tolerated Weightbearing: Full weightbearing Non-emergency contact: Primary Care Provider Call non-emergency contact if: you have any medication questions, your symptoms worsen and you have a fever Follow-up/Referrals: Lucille Barbour, [Primary Care Provider] - (Follow up within 1-2 weeks.) Diet: Regular Addtl Attending Provider Instructions: Please finish out the course of the steroid pill called dexamethasone to help your lungs. You should have a repeat chest xray in about 4 weeks to ensure your pneumonia is resolved. Continue to increase your activity slowly as tolerated. You should remain on quarantine at home through 06/01/21. Pending Studies at Discharge: No Stand-Alone Forms: My [facility] Medications and DC Order Prescriptions: New dexamethasone 4 mg tablet 4 mg PO DAILY Qty: 3 RF: 0 Continued famotidine 20 mg tablet 20 mg PO BID Qty: 180 RF: 3 trazodone 100 mg tablet See Rx Instructions .ROUTE .COMPLEX RF: 0 guanfacine 2 mg tablet 2 mg PO BID RF: 0 methylphenidate HCl 36 mg tablet extended release 24hr 36 mg PO DAILY RF: 0 buspirone 10 mg tablet 10 mg PO BID RF: 0 fluvoxamine 100 mg tablet 100 mg PO HS RF: 0 Discharge Orders: Discharge Order (Routine); Ordered 05/29/21 Ordered By: Tania Long Admission Data Admit Date/Time: 05/22/21 22:25 Attending Provider: Tania Long Admit Provider: Angela Prakash Primary Care Provider: Luclile Barbour Other Providers: Nader Modi Coding Level of Care Code D/C DAY MANAGEMENT >30 MINS Diagnoses Pneumonia due to 2019 novel coronavirus U07.1; J12.82 Acute hypoxemic respiratory failure J96.01 ADHD F90.9 Generalized anxiety disorder F41.1 Autism F84.0 GERD (gastroesophageal reflux disease) K21.9
== END 2021-05-29 13:09 | disposition home or self-care (01) | DRG 177 ==
LOC: ED 19:28 → 2S 22:25 → SUATTDRO 22:25 → 2S 23:43 → 2E 05-23 11:38